=== PATIENT | female | born 1990 | race Caucasian/White ===

== ENCOUNTER 2021-06-26 20:57 | Emergency (ER) | payer BC ==
[~2021-06-26] VITALS: Ht 167.6 cm; Wt 71.7 kg
[2021-06-26] MEDS ORDERED: PROVENTIL HFA6.7 GM INH (22:56)
[2021-06-26 23:12] VITALS: BP 118/81
== END 2021-06-26 23:12 | disposition home or self-care (01) ==
LOC: FSED 22:00
DX: R05 Cough (principal); J98.01 Acute bronchospasm
CPT/HCPCS: 71046; 83518; 99283

== ENCOUNTER 2023-01-25 11:30 | Emergency (ER) | payer SELFPAY ==
[~2023-01-25] VITALS: Ht 167.6 cm; Wt 65.8 kg
[~2023-01-25 11:30] MED LIST: PROVENTIL HFA6.7 GM INH
[2023-01-25 12:09] LABS: BASOPHILS % 0.8 % (0.0-1.0); EOSINOPHILS # (AUTO) 0.1 (0.0-0.4); EOSINOPHILS % 2.1 % (0.0-6.0); HEMATOCRIT 39.3 % (34.2-44.1); HEMOGLOBIN 12.1 g/dL (12.0-16.0); LYMPHOCYTES # (AUTO) 1.9 (1.0-3.2); MEAN CORPUSCULAR HGB CONC 30.8 g/dL (31-35); MEAN CORPUSCULAR VOLUME 87.7 fL (81-99); MONOCYTES # (AUTO) 0.3 (0.2-0.8); NEUTROPHILS # (AUTO) 2.9 (2.1-6.9); NEUTROPHILS % 54.9 % (38.7-80.0); PLATELET COUNT 269 x10e3/uL (140-360); RED BLOOD COUNT 4.48 x10e6/uL (3.6-5.1); RED CELL DISTRIBUTION WIDTH 14.4 % (11.7-14.4)
[2023-01-25 12:15] LABS: ALANINE AMINOTRANSFERASE 16 IU/L (0-55); ALBUMIN 4.4 g/dL (3.5-5.0); ALBUMIN/GLOBULIN RATIO 1.4 (0.8-2.0); ALKALINE PHOSPHATASE 60 IU/L (40-150); ANION GAP 13.1 mmol/L (8-16); BLOOD UREA NITROGEN 14 mg/dL (7-26); BUN/CREATININE RATIO 18 (6-25); CALCIUM 9.1 mg/dL (8.4-10.2); CARBON DIOXIDE 23 mmol/L (22-29); CHLORIDE 107 mmol/L (98-107); CREATININE, SERUM 0.78 mg/dL (0.57-1.11); GLUCOSE 88 mg/dL (74-118); MAGNESIUM 1.9 MG/DL (1.3-2.1); POTASSIUM 4.1 mmol/L (3.5-5.1); SODIUM 139 mmol/L (136-145)
[2023-01-25 13:25] LABS: FREE THYROXINE INDEX 1.7598 (1.4-3.8); THYROID STIMULATING HORMONE 1.056 uIU/mL (0.350-4.940)
[2023-01-25 14:01] VITALS: BP 107/75
== END 2023-01-25 14:06 | disposition home or self-care (01) ==
LOC: ER 11:43
DX: R07.9 Chest pain, unspecified (principal); F41.9 Anxiety disorder, unspecified
CPT/HCPCS: 36415; 71045; 80053; 83735; 84436; 84443; 84479; 84484; 84702; 85025; 85379; 93005; 99284